=== PATIENT | male | born 1985 | race Caucasian/White ===

== ENCOUNTER 2016-12-10 12:48 | Emergency (ER) | payer OTHER ==
[~2016-12-10] VITALS: Ht 175.3 cm; Wt 64.0 kg
[~2016-12-10 12:48] MED LIST: ONDA4TAB7 SL; SUBUTEX PO
[2016-12-10 13:00] VITALS: TEMP 37; Ht 175.3 cm; Wt 64.0 kg
[2016-12-10] MEDS ORDERED: ONDANSETRON INJ 2 MG/ML 2 ML VIAL IV STA (13:40)
[2016-12-10] MEDS ORDERED: SODIUM CHLORIDE 0.9% 1000ML 1,000 ML IV STA (13:40)
[2016-12-10 13:52] LABS: BASO % 0.2 %; BASO ABS # 0.03 K/uL (0-0.2); COMPLETE YES; EOS % 0.3 %; HEMATOCRIT 41.2 % (42-52); IG% 0.2 %; LYMPH % 29.7 %; MEAN CELL VOLUME 96.3 fL (80-100); MEAN CORPUSCULAR HEMOGLOBIN 34.6 pg (25-34); MEAN CORPUSCULAR HGB CONC 35.9 g/dl (32-36); MEAN PLATELET VOLUME 10.4 fL (7.4-10.4); NEUT % 62.6 %; PLATELET COUNT 253 K/uL (130-400); RED BLOOD COUNT 4.28 M/uL (4.7-6.1); WHITE BLOOD COUNT 13.11 K/uL (4.8-10.8)
[2016-12-10] MEDS ORDERED: BUPR8SUB19 SL (13:52)
[2016-12-10 14:13] LABS: BUN/CREATININE RATIO 18.4 (10-20); CALCIUM 9.7 mg/dl (8.5-10.1); CREATININE 0.88 mg/dl (0.60-1.40); POTASSIUM 3.5 mmol/L (3.5-5.1)
--- NOTE | 2016-12-10 14:18 | DIAGNOSTIC IMAGING REPORT ---
ABDOMEN 2VIEW W/PA CHEST RTN CLINICAL HISTORY: nausea/ vomiting nausea. Pain. COMPARISON STUDY: 10/18/2014 FINDINGS: The soft tissues, psoas shadows, renal outlines and intestinal gas pattern appear normal. There is no evidence for bowel obstruction. There is no evidence for free intraperitoneal air. No abnormal abdominal calcifications are seen. A frontal view of the chest was performed and is unremarkable. IMPRESSION: Normal study. Electronically signed by: Mir Cho M.D. 12/10/2016 2:16 PM Dictated Date/Time: 12/10/2016 2:16 PM
[2016-12-10 14:24] LABS: THYROID STIMULATING HORMONE 1.5 uIu/ml (0.300-4.500)
[2016-12-10] MEDS ORDERED: ONDA4TAB10 SL (14:42)
--- NOTE | 2016-12-10 14:43 | EMERGENCY ROOM VISIT NOTE ---
History First contact with patient: 13:28 Chief Complaint: VOMITING Stated Complaint: NAUSEA,HOT/COLD SWEATS,DEHYDRATION,NO APPETITE Nursing Triage Summary: Pt reports nausea/vomiting since yesterday. Concerned for dehydration. Weak, decreased appetite. Yesterday had body aches. History of Present Illness The patient is a 31 year old male who presents to the Emergency Room with complaints of nausea and vomiting. The patient states that over the last month or 2 he has been having one to 2 episodes of vomiting per week. His latest episode started on Saturday when he just was not feeling very well he felt nauseated and felt hot and cold but did not vomit. On Saturday he had one episode of vomiting and then yesterday he was nauseated and had vomiting all day. The patient denies any abdominal pain or any change in bowel habits. The patient denies any urinary symptoms of frequency, urgency, dysuria or hematuria. The patient denies any heartburn. The patient states today he is feeling better. He only feels nauseated intermittently. He has not vomited today. He was able to drink fluids this morning and drink a bottle of ensure. The patient states prior to vomiting he feels hot and cold and feels tingly in his extremities. After he vomits he feels better for approximately 15-20 minutes. The patient currently does not have a family doctor. He has not taken any [id number] medications for his symptoms. Review of Systems 10 system review was performed and was negative unless stated otherwise history of present illness. Past Medical/Surgical History Medical Problems: (1) Anxiety and depression (2) Bipolar disorder Family History Depression Social History Smoking Status: Current Every Day Smoker Alcohol Use: occasionally Marital Status: single Housing Status: lives with significant other Occupation Status: unemployed Current/Historical Medications Scheduled Buprenorphine Hcl (Subutex), 1 TAB SL BID Allergies Coded Allergies: Gadolinium (Verified Allergy, Severe, airway swelling, 12/10/16) Propoxyphene (Verified Allergy, Severe, GI SYMPTOMS, 12/10/16) Naloxone (Verified Allergy, Intermediate, VOMITING, RASH, 12/10/16) Iodinated Diagnostic Agents (Unverified Allergy, Unknown, SWELLING RASH , 12/10/16) Oxycodone (Verified Adverse Reaction, Mild, upset stomach, 12/10/16) Physical Exam Vital Signs Date Time Temp Pulse Resp B/P Pulse Ox O2 Delivery O2 Flow Rate FiO2 12/10/16 13:00 37.0 84 18 134/78 98 Room Air Physical Exam GENERAL: 31-year-old white male appears in no acute distress. MENTAL Status: Alert and oriented 3. MOUTH: Mucosa is moist NECK: Supple, no lymphadenopathy noted. No carotid bruits noted. LUNGS: Clear auscultation without wheezes rales or rhonchi. CARDIAC: Regular rate and rhythm without murmur. Pulses is full and equal throughout. BACK: Mild right CVA tenderness noted. ABDOMEN: Positive bowel sounds all 4 quadrants. Soft, nontender to palpation without organomegaly or masses. EXTREMITIES: No cyanosis or edema noted. Medical Decision & Procedures ER Provider Diagnostic Interpretation: ABDOMEN 2VIEW W/PA CHEST RTN CLINICAL HISTORY: nausea/ vomiting nausea. Pain. COMPARISON STUDY: 10/18/2014 FINDINGS: The soft tissues, psoas shadows, renal outlines and intestinal gas pattern appear normal. There is no evidence for bowel obstruction. There is no evidence for free intraperitoneal air. No abnormal abdominal calcifications are seen. A frontal view of the chest was performed and is unremarkable. IMPRESSION: Normal study. Electronically signed by: Mir Cho M.D. 12/10/2016 2:16 PM Dictated Date/Time: 12/10/2016 2:16 PM Laboratory Results 12/10/16 13:35 Red Blood Count 4.28, Mean Corpuscular Volume 96.3, Mean Corpuscular Hemoglobin 34.6, Mean Corpuscular Hemoglobin Concent 35.9, Mean Platelet Volume 10.4, Neutrophils (%) (Auto) 62.6, Lymphocytes (%) (Auto) 29.7, Monocytes (%) (Auto) 7.0, Eosinophils (%) (Auto) 0.3, Basophils (%) (Auto) 0.2, Neutrophils # (Auto) 8.19, Lymphocytes # (Auto) 3.90, Monocytes # (Auto) 0.92, Eosinophils # (Auto) 0.04, Basophils # (Auto) 0.03 12/10/16 13:35 Test 12/10/16 13:35 White Blood Count 13.11 K/uL (4.8-10.8) Red Blood Count 4.28 M/uL (4.7-6.1) Hemoglobin 14.8 g/dL (14.0-18.0) Hematocrit 41.2 % (42-52) Mean Corpuscular Volume 96.3 fL (80-100) Mean Corpuscular Hemoglobin 34.6 pg (25-34) Mean Corpuscular Hemoglobin Concent 35.9 g/dl (32-36) Platelet Count 253 K/uL (130-400) Mean Platelet Volume 10.4 fL (7.4-10.4) Neutrophils (%) (Auto) 62.6 % Lymphocytes (%) (Auto) 29.7 % Monocytes (%) (Auto) 7.0 % Eosinophils (%) (Auto) 0.3 % Basophils (%) (Auto) 0.2 % Neutrophils # (Auto) 8.19 K/uL (1.4-6.5) Lymphocytes # (Auto) 3.90 K/uL (1.2-3.4) Monocytes # (Auto) 0.92 K/uL (0.11-0.59) Eosinophils # (Auto) 0.04 K/uL (0-0.5) Basophils # (Auto) 0.03 K/uL (0-0.2) RDW Standard Deviation 46.7 fL (36.4-46.3) RDW Coefficient of Variation 13.2 % (11.5-14.5) Immature Granulocyte % (Auto) 0.2 % Immature Granulocyte # (Auto) 0.03 K/uL (0.00-0.02) Anion Gap 12.0 mmol/L (3-11) Est Creatinine Clear Calc Drug Dose 111.1 ml/min Estimated GFR () 133.6 Estimated GFR (Non- 115.3 BUN/Creatinine Ratio 18.4 (10-20) Calcium Level 9.7 mg/dl (8.5-10.1) Total Bilirubin 0.5 mg/dl (0.2-1) Direct Bilirubin 0.1 mg/dl (0-0.2) Aspartate Amino Transf (AST/SGOT) 22 U/L (15-37) Alanine Aminotransferase (ALT/SGPT) 52 U/L (12-78) Alkaline Phosphatase 67 U/L (45-117) Total Protein 8.8 gm/dl (6.4-8.2) Albumin 4.6 gm/dl (3.4-5.0) Lipase 87 U/L (73-393) Thyroid Stimulating Hormone (TSH) 1.500 uIu/ml (0.300-4.500) Medications Administered Medications (Trade) Dose Ordered Sig/Maxx Route Start Time Stop Time Status Last Admin Dose Admin Ondansetron HCl 4 mg 4 mg NOW STAT IV 12/10/16 13:40 12/10/16 13:44 DC 12/10/16 13:59 4 MG Sodium Chloride (Nss 1000ml) 1,000 ml @ 999 mls/hr Q1H1M STAT IV 12/10/16 13:40 12/10/16 14:40 12/10/16 13:40 999 MLS/HR ED Course The patient was evaluated. IV access was obtained. The patient was given 1 L normal saline wide-open and Zofran 4 mg IV push. CBC and differential, renal profile, LFTs and lipase levels were ordered. TSH was ordered. Abdominal series x-ray was ordered and interpreted by the radiologist and myself as above without any acute findings. Labs are reviewed and were unremarkable. The patient was informed of all findings. The patient was discharged home in stable condition. Medical Decision Differential diagnosis include acute cholecystitis, acute gastritis, GERD, small bowel obstruction Impression Primary Impression: Acute gastritis Departure Information Dispostion Home / Self-Care Condition GOOD Prescriptions Ondasetron Odt (ZOFRAN ODT) 4 Mg Tab 4 MG SL Q6H for Nausea, #10 TAB Prov: Janina Cho PA-C 12/10/16 Referrals No Doctor, Assigned (PCP) Fabricio Purcell M.D. Forms HOME CARE DOCUMENTATION FORM, IMPORTANT VISIT INFORMATION Patient Instructions ED Nausea Vomiting, My [facility] Additional Instructions Recommend taking [id number]-gan-[id number] Prilosec 20 mg daily. Take Zofran as needed for nausea. Keep herself well-hydrated. Call , gastroenterology for follow-up appointment and further evaluation. He may need a referral from your PCP. Please check with your insurance company before making that appointment. If symptoms should worsen in the interim, return to ER.
[2016-12-10 14:53] VITALS: BP 124/90; PULSE 78; O2SAT 98
== END 2016-12-10 14:55 | disposition home or self-care (01) ==
LOC: C.EDB 12:49
DX: K29.00 Acute gastritis without bleeding (principal); F31.9 Bipolar disorder, unspecified; F41.9 Anxiety disorder, unspecified; F32.9 Major depressive disorder, single episode, unspecified; F17.200 Nicotine dependence, unspecified, uncomplicated; Z88.5 Allergy status to narcotic agent; Z88.8 Allergy status to other drugs, medicaments and biological substances; Z91.041 Radiographic dye allergy status; Z81.8 Family history of other mental and behavioral disorders

== ENCOUNTER 2016-12-31 16:42 | Emergency (ER) | payer OTHER ==
[~2016-12-31 16:42] MED LIST changes: +BUPR8SUB19 SL; +ONDA4TAB10 SL; -ONDA4TAB7 SL; -SUBUTEX PO
== END 2016-12-31 16:46 | disposition left against medical advice (07) ==
LOC: C.EDB 16:43
DX: S69.91XA Unspecified injury of right wrist, hand and finger(s), initial encounter (principal); X58.XXXA Exposure to other specified factors, initial encounter

== ENCOUNTER 2017-07-29 12:23 | Emergency (ER) | payer OTHER ==
[~2017-07-29] VITALS: Ht 172.7 cm; Wt 58.6 kg
[~2017-07-29 12:23] MED LIST changes: -ONDA4TAB10 SL; +VANCOMYCIN HCL 125 MG/2.5ML SOLN PO SCH
[2017-07-29 12:36] VITALS: TEMP 36.7; Ht 172.7 cm; Wt 58.6 kg
[2017-07-29] MEDS ORDERED: SODIUM CHLORIDE 0.9% 1000ML 1,000 ML IV STA ×2 (13:41→16:14)
[2017-07-29] MEDS ORDERED: MoRPHine SULFATE 4 MG/ML 1 ML CARP\\VIAL IV STA (13:41)
[2017-07-29] MEDS ORDERED: ONDANSETRON INJ 2 MG/ML 2 ML VIAL IV STA (13:41)
[2017-07-29 14:18] LABS: BASO % 0.1 %; BASO ABS # 0.03 K/uL (0-0.2); COMPLETE YES; EOS % 0.5 %; HEMATOCRIT 37.6 % (42-52); IG% 0.2 %; LYMPH % 6.6 %; LYMPH ABS # 1.41 K/uL (1.2-3.4); MEAN CELL VOLUME 95.4 fL (80-100); MEAN CORPUSCULAR HEMOGLOBIN 33.2 pg (25-34); MEAN CORPUSCULAR HGB CONC 34.8 g/dl (32-36); MEAN PLATELET VOLUME 10.3 fL (7.4-10.4); MONO % 8.9 %; NEUT % 83.7 %; PLATELET COUNT 222 K/uL (130-400); RED BLOOD COUNT 3.94 M/uL (4.7-6.1); WHITE BLOOD COUNT 21.37 K/uL (4.8-10.8)
[2017-07-29 14:33] LABS: ALT/SGPT 13 U/L (12-78); AST/SGOT 10 U/L (15-37); BLOOD UREA NITROGEN 11 mg/dl (7-18); BUN/CREATININE RATIO 12.8 (10-20); CALCIUM 8.9 mg/dl (8.5-10.1); CARBON DIOXIDE 26 mmol/L (21-32); CHLORIDE 102 mmol/L (98-107); CREATININE 0.83 mg/dl (0.60-1.40); GLUCOSE 106 mg/dl (70-99); POTASSIUM 3.7 mmol/L (3.5-5.1); SODIUM 136 mmol/L (136-145)
[2017-07-29 14:36] LABS: ALKALINE PHOSPHATASE 72 U/L (45-117)
[2017-07-29 14:51] LABS: URINE APPEARANCE CLEAR (CLEAR); URINE COLOR DK YELLOW; URINE EPITHELIAL CELL AUTO >30 /lpf (0-5); URINE NITRITE POS (NEG); URINE PH 5.5 (4.5-7.5); URINE SPECIFIC GRAVITY 1.035 (1.000-1.030); UROBILINOGEN NEG (NEG); ZZUR CULT IF INDIC CLEAN CATCH NO
--- NOTE | 2017-07-29 14:55 | DIAGNOSTIC IMAGING REPORT ---
CT SCAN OF THE ABDOMEN AND PELVIS WITHOUT IV CONTRAST CLINICAL HISTORY: Generalized abdominal pain. COMPARISON STUDY: Abdominal radiograph dated 12/10/2016. TECHNIQUE: CT scan of the abdomen and pelvis is performed from the lung bases to the proximal femora. Images are reviewed in the axial, sagittal, and coronal planes. IV contrast was not administered for this examination as per the referring clinician. Note that the examination is suboptimal without oral and IV contrast. A dose lowering technique was utilized adhering to the principles of ALARA. CT DOSE: 257.65 mGy.cm FINDINGS: Lung bases: The heart is normal in size and without pericardial effusion. The lung bases are clear. Liver: The unenhanced liver is normal in size, contour, and attenuation. There is no intrahepatic biliary ductal dilatation. Gallbladder: Unremarkable. Spleen: Normal in size and attenuation. Pancreas: The unenhanced pancreas is grossly unremarkable. Adrenal glands: Unremarkable. Kidneys: The unenhanced kidneys are normal in size and without hydronephrosis. There are no renal calculi identified. There is no evidence of contour deforming renal mass lesion. Abdominal vasculature: The abdominal aorta is normal in course and caliber. Bowel: There is no bowel obstruction. There is diffuse mucosal thickening and edema identified throughout the colon with associated pericolonic infiltration and trace fluid. The appearance is consistent with a nonspecific pancolitis. The cecum is located in the pelvis. The appendix is not identified. Peritoneum: There is trace free fluid in the abdomen and pelvis. No intraperitoneal free air is seen. Lymphadenopathy: None. Pelvic viscera: The bladder, prostate, and seminal vesicles are normal as visualized. Skeletal structures: No lytic or blastic lesions are seen. IMPRESSION: 1. Suboptimal examination without oral and IV contrast. 2. Findings are consistent with a nonspecific pancolitis, likely on an infectious or inflammatory basis in this age group. 3. Trace free fluid is seen in the abdomen and pelvis, likely on a reactive basis. Electronically signed by: Alireza Redding M.D. 07/29/2017 2:54 PM Dictated Date/Time: 07/29/2017 2:50 PM
[2017-07-29 14:57] LABS: MANUAL MICROSCOPIC REQUIRED? NO; REVIEW REQ? NO; URINE BILIRUBIN 2+ (NEG)
[2017-07-29] MEDS ORDERED: METRONIDAZOLE 500MG / 100ML NSS IV STA (16:14)
[2017-07-29] MEDS ORDERED: CEFTRIAXONE SOD INJ 1 GM ADDVIAL IV STA (16:14)
[2017-07-29] MEDS ORDERED: VANCOMYCIN HCL 125 MG/2.5ML SOLN PO STA (16:14)
--- NOTE | 2017-07-29 16:49 | Pharmacy Progress Note ---
ED Pharmacist Progress Note Date of Service: Jul 29, 2017. Rx phoned to [facility] ([phone]) for Vancomycin oral solution 125mg PO QID x 13 days, no refills, Dr Yeboah. Pt received 1st dose of PO Vancomycin in ED today. Will dispense a home pack of 3 doses of 125mg as [facility] will not have the Rx available until tomorrow evening as they need to order this medication.
[2017-07-29 18:02] VITALS: BP 111/56; PULSE 84; O2SAT 98
--- NOTE | 2017-07-29 20:44 | EMERGENCY ROOM VISIT NOTE ---
History Report prepared by Rivka: Maegan Acevedo Under the Supervision of: Dr. Toby Yeboah M.D. First contact with patient: 13:31 Chief Complaint: ABDOMINAL PAIN Stated Complaint: SEVERE STOMACH PAIN, MUCUS STOOLS, LOSS OF WT Nursing Triage Summary: Poor appetite x5 days, white mucousy diarrhea, painful BMs, diffuse abdominal pain 10/10. Internittent red blood in stool. Denies N/V. Denies urinary symptoms. History of Present Illness The patient is a 31 year old male who presents to the Emergency Room with complaints of worsening abdominal pain beginning 2 days ago. The patient describes the pain as severe, and rates it at a 5/10. The patient also reports having mucus and a little bit of blood in his stool. He also reports being nauseous. The patient states that a few years ago he was diagnosed with colitis , but has never been treated for it because it went away. His family reports that he has also had loss of appetite.He states that he has been on Subutex for a couple of years. Pt denies LOC, headache, fevers, chills, diaphoresis, visual changes, neck pain, chest pain, breathing difficulties, vomiting, back pain, numbness, weakness, lymphadenopathy, rash, or other complaints. Source of History: patient, family Onset: 2 days ago Position: abdomen Symptom Intensity: severe (rated at a 5/10) Timing: worsening Associated Symptoms: + nausea, No fevers Note: additional symptoms: mucus and a little bit of blood in stool, loss of appetite Review of Systems See HPI for pertinent positives and negatives. A total of ten systems were reviewed and were otherwise negative. Past Medical & Surgical Medical Problems: (1) Anxiety and depression (2) Bipolar disorder Family History Depression Social History Smoking Status: Current Every Day Smoker Alcohol Use: occasionally Marital Status: Housing Status: lives with significant other Occupation Status: unemployed Current/Historical Medications No Active Prescriptions or Reported Meds Allergies Coded Allergies: Gadolinium (Verified Allergy, Severe, airway swelling, 12/10/16) Propoxyphene (Verified Allergy, Severe, GI SYMPTOMS, 12/10/16) Naloxone (Verified Allergy, Intermediate, VOMITING, RASH, 07/29/17) Iodinated Diagnostic Agents (Unverified Allergy, Unknown, SWELLING RASH , 07/29/17) Oxycodone (Verified Adverse Reaction, Mild, upset stomach, 12/10/16) Physical Exam Vital Signs Date Time Temp Pulse Resp B/P (MAP) Pulse Ox O2 Delivery O2 Flow Rate FiO2 07/29/17 18:02 84 18 111/56 98 Room Air 07/29/17 15:26 80 18 116/70 97 Room Air 07/29/17 14:12 97 18 106/62 97 Room Air 07/29/17 13:59 97 07/29/17 12:36 36.7 109 18 123/87 97 Room Air Physical Exam GENERAL: Awake, alert, uncomfortable-appearing, in no distress HENT: Normocephalic, atraumatic. Oropharynx unremarkable. EYES: Normal conjunctiva. Sclera non-icteric. NECK: Supple. No nuchal rigidity. FROM. No JVD. RESPIRATORY: Clear to auscultation. CARDIAC: Regular rate, normal rhythm. Extremities warm and well perfused. Pulses equal. ABDOMEN: Soft, non-distended. Diffuse abdominal tenderness. No rebound or guarding. No masses. RECTAL: Deferred. MUSCULOSKELETAL: Chest examination reveals no tenderness. The back is symmetrical on inspection without obvious abnormality. Mild bilateral CVA tenderness. No joint edema. LOWER EXTREMITIES: Calves are equal size bilaterally and non-tender. No edema. No discoloration. NEURO: Normal sensorium. No sensory or motor deficits noted. SKIN: No rash or jaundice noted. Medical Decision & Procedures ER Provider Diagnostic Interpretation: Radiology results as stated below per my review and radiologist interpretation: CT SCAN OF THE ABDOMEN AND PELVIS WITHOUT IV CONTRAST CLINICAL HISTORY: Generalized abdominal pain. COMPARISON STUDY: Abdominal radiograph dated 12/10/2016. TECHNIQUE: CT scan of the abdomen and pelvis is performed from the lung bases to the proximal femora. Images are reviewed in the axial, sagittal, and coronal planes. IV contrast was not administered for this examination as per the referring clinician. Note that the examination is suboptimal without oral and IV contrast. A dose lowering technique was utilized adhering to the principles of ALARA. CT DOSE: 257.65 mGy.cm FINDINGS: Lung bases: The heart is normal in size and without pericardial effusion. The lung bases are clear. Liver: The unenhanced liver is normal in size, contour, and attenuation. There is no intrahepatic biliary ductal dilatation. Gallbladder: Unremarkable. Spleen: Normal in size and attenuation. Pancreas: The unenhanced pancreas is grossly unremarkable. Adrenal glands: Unremarkable. Kidneys: The unenhanced kidneys are normal in size and without hydronephrosis. There are no renal calculi identified. There is no evidence of contour deforming renal mass lesion. Abdominal vasculature: The abdominal aorta is normal in course and caliber. Bowel: There is no bowel obstruction. There is diffuse mucosal thickening and edema identified throughout the colon with associated pericolonic infiltration and trace fluid. The appearance is consistent with a nonspecific pancolitis. The cecum is located in the pelvis. The appendix is not identified. Peritoneum: There is trace free fluid in the abdomen and pelvis. No intraperitoneal free air is seen. Lymphadenopathy: None. Pelvic viscera: The bladder, prostate, and seminal vesicles are normal as visualized. Skeletal structures: No lytic or blastic lesions are seen. IMPRESSION: 1. Suboptimal examination without oral and IV contrast. 2. Findings are consistent with a nonspecific pancolitis, likely on an infectious or inflammatory basis in this age group. 3. Trace free fluid is seen in the abdomen and pelvis, likely on a reactive basis. Electronically signed by: Alireza Redding M.D. 07/29/2017 2:54 PM Dictated Date/Time: 07/29/2017 2:50 PM Laboratory Results 07/29/17 13:58 Red Blood Count 3.94, Mean Corpuscular Volume 95.4, Mean Corpuscular Hemoglobin 33.2, Mean Corpuscular Hemoglobin Concent 34.8, Mean Platelet Volume 10.3, Neutrophils (%) (Auto) 83.7, Lymphocytes (%) (Auto) 6.6, Monocytes (%) (Auto) 8.9, Eosinophils (%) (Auto) 0.5, Basophils (%) (Auto) 0.1, Neutrophils # (Auto) 17.87, Lymphocytes # (Auto) 1.41, Monocytes # (Auto) 1.91, Eosinophils # (Auto) 0.10, Basophils # (Auto) 0.03 07/29/17 13:58 Test 07/29/17 13:58 07/29/17 14:16 White Blood Count 21.37 K/uL (4.8-10.8) Red Blood Count 3.94 M/uL (4.7-6.1) Hemoglobin 13.1 g/dL (14.0-18.0) Hematocrit 37.6 % (42-52) Mean Corpuscular Volume 95.4 fL (80-100) Mean Corpuscular Hemoglobin 33.2 pg (25-34) Mean Corpuscular Hemoglobin Concent 34.8 g/dl (32-36) Platelet Count 222 K/uL (130-400) Mean Platelet Volume 10.3 fL (7.4-10.4) Neutrophils (%) (Auto) 83.7 % Lymphocytes (%) (Auto) 6.6 % Monocytes (%) (Auto) 8.9 % Eosinophils (%) (Auto) 0.5 % Basophils (%) (Auto) 0.1 % Neutrophils # (Auto) 17.87 K/uL (1.4-6.5) Lymphocytes # (Auto) 1.41 K/uL (1.2-3.4) Monocytes # (Auto) 1.91 K/uL (0.11-0.59) Eosinophils # (Auto) 0.10 K/uL (0-0.5) Basophils # (Auto) 0.03 K/uL (0-0.2) RDW Standard Deviation 44.3 fL (36.4-46.3) RDW Coefficient of Variation 12.7 % (11.5-14.5) Immature Granulocyte % (Auto) 0.2 % Immature Granulocyte # (Auto) 0.05 K/uL (0.00-0.02) Anion Gap 8.0 mmol/L (3-11) Est Creatinine Clear Calc Drug Dose 107.9 ml/min Estimated GFR () 136.8 Estimated GFR (Non- 118.1 BUN/Creatinine Ratio 12.8 (10-20) Calcium Level 8.9 mg/dl (8.5-10.1) Total Bilirubin 0.4 mg/dl (0.2-1) Direct Bilirubin < 0.1 mg/dl (0-0.2) Aspartate Amino Transf (AST/SGOT) 10 U/L (15-37) Alanine Aminotransferase (ALT/SGPT) 13 U/L (12-78) Alkaline Phosphatase 72 U/L (45-117) Total Protein 7.3 gm/dl (6.4-8.2) Albumin 3.4 gm/dl (3.4-5.0) Lipase 63 U/L (73-393) Urine Color DK YELLOW Urine Appearance CLEAR (CLEAR) Urine pH 5.5 (4.5-7.5) Urine Specific [place] 1.035 (1.000-1.030) Urine Protein TRACE (NEG) Urine Glucose (UA) NEG (NEG) Urine Ketones 3+ (NEG) Urine Occult Blood 2+ (NEG) Urine Nitrite POS (NEG) Urine Bilirubin 2+ (NEG) Urine Urobilinogen NEG (NEG) Urine Leukocyte Esterase TRACE (NEG) Urine WBC (Auto) 1-5 /hpf (0-5) Urine RBC (Auto) >30 /hpf (0-4) Urine Hyaline Casts (Auto) 10-30 /lpf (0-5) Urine Epithelial Cells (Auto) >30 /lpf (0-5) Urine Bacteria (Auto) NEG (NEG) Date/Time Source Procedure Growth Status 07/29/17 14:16 Stool C.difficile Toxin B Gene (PCR) - Final Positive for C. difficile toxin B gene Complete Laboratory results reviewed by me Medications Administered Medications (Trade) Dose Ordered Sig/Maxx Route Start Time Stop Time Status Last Admin Dose Admin Sodium Chloride 1,000 ml @ 999 mls/hr Q1H1M STAT IV 07/29/17 13:41 07/29/17 14:41 DC 07/29/17 14:05 999 MLS/HR Ondansetron HCl (Zofran Inj) 4 mg NOW STAT IV 07/29/17 13:41 07/29/17 13:43 DC 07/29/17 14:11 4 MG Morphine Sulfate (MoRPHine SULFATE INJ) 4 mg NOW STAT IV 07/29/17 13:41 07/29/17 13:43 DC 07/29/17 14:12 4 MG Sodium Chloride 1,000 ml @ 200 mls/hr Q5H STAT IV 07/29/17 16:14 07/29/17 19:11 DC 07/29/17 16:25 200 MLS/HR Vancomycin HCl (Vancomycin Oral Soln) 125 mg NOW STAT PO 07/29/17 16:14 07/29/17 16:17 DC 07/29/17 16:33 125 MG Metronidazole (Flagyl / Nss) 500 mg NOW STAT IV 07/29/17 16:14 07/29/17 16:17 DC 07/29/17 16:26 500 MG Ceftriaxone Sodium (Rocephin Inj) 1 gm NOW STAT IV 07/29/17 16:14 07/29/17 16:17 DC 07/29/17 16:25 1 GM ED Course 1340: The patient was evaluated in room B9. A complete history and physical exam was performed. 1341: Ordered Morphine Sulfate 4 mg IV, Zofran Inj 4 mg IV, Sodium Chloride 1, 000 ml @ 999 mls/hr IV. 1545: I updated the patient on his results. 1600: Discussed the patient's case with DEVANTE Huizar. The patient will be evaluated for further treatment and disposition. 1602: The patient states that he feels better and that he would prefer to go home. 1614: Ordered Rocephin Inj 1 gm IV, Metronidazole 500 mg IV, Vancomycin HCl 125 mg PO, Sodium Chloride 1,000 ml @ 200 mls/hr IV. 1730: I discussed the need for admission with the patient. He stated understanding. The patient left against medical advice. Medical Decision Triage Nursing notes reviewed. The patient's presentation and history were concerning for abdominal pain. Etiologies such as infectious diarrhea, inflammatory bowel disease, appendicitis, diverticulitis, obstruction, renal colic, PUD, biliary pathology , pancreatitis, mesenteric ischemia, aortic pathology, infections, genitourinary , UTI, perforated viscus, as well as others were entertained. The patient was evaluated. He was uncomfortable. He was given Zofran, normal saline, and morphine. He felt better with this. Blood work is obtained and he had a significant leukocytosis. The patient was also found to have a urinalysis concerning for UTI. The patient does note some urinary symptoms. He denies any recent antibiotic use or sick contacts. Stool culture was sent and was found to be positive for C. difficile. CT imaging was concerning for a pancolitis. The patient was informed. I did consult with gastroenterology. Recommendations were for admission. The patient declined admission as he has pending appointments tomorrow. He was aware of the risks. He did willingly stay for the initiation of treatment. I did give him oral vancomycin, IV Flagyl , and a dose of IV Rocephin. The patient will be seen tomorrow at the [facility] gastroenterology clinic at 2:30 PM. He will start oral vancomycin. He was given the first 3 doses by pharmacy here as his pharmacy will take some time to order in the medication. He should have this tomorrow afternoon from his pharmacy. The patient will contact the Emergency Room tomorrow for urine culture result. I did not do additional antibiotics regarding the urine because of this C. difficile issue and colitis. His urinary treatment will be based upon his culture results. If the patient worsens in any way he will be back. He is fully aware of the risks and benefits. I gave my usual and customary discussion regarding this issue. The patient has demonstrated no significant defect in the decision-making capacity to make choices. The encounter had a good level of communication with language the patient can easily understand. I feel trust was present and conveyed that our action/intentions were the best interest of the patient. The patient was given all relevant information and reiterated the explained risks and benefits. The patient explained the reasoning for refusing treatment clearly. The patient possesses and expresses a set of values and goals, the ability to communicate and understand, and an ability to reason and deliberate. Despite acting emphatically, attentively and with the utmost patient's the patient declined further treatment. I offered options, negotiated, and explored every reasonable choice. I must respect the patient's autonomy and that they feel that their choices are best for them despite the associated risks of leaving AGAINST MEDICAL ADVICE. Medication Reconcilliation Current Medication List: was personally reviewed by me Blood Pressure Screening Patient's blood pressure: Normal blood pressure Consults Time Called: 1544 Consulting Physician: Amalia [employer] Machine Supervisor Returned Call: 1600 Discussed the patient's case. The patient will be evaluated for further treatment and disposition. Impression Primary Impression: C. difficile colitis Additional Impressions: Generalized abdominal pain UTI (urinary tract infection) Scribe Attestation The scribe's documentation has been prepared under my direction and personally reviewed by me in its entirety. I confirm that the note above accurately reflects all work, treatment, procedures, and medical decision making performed by me. Departure Information Dispostion Against Medical Advice Prescriptions No Active Prescriptions or Reported Meds Referrals Danis Mcbride D.O. (PCP) Forms HOME CARE DOCUMENTATION FORM, IMPORTANT VISIT INFORMATION Patient Instructions My [facility] Additional Instructions CT imaging revealed a diffuse colitis, inflammation of her colon. Stool testing revealed a C. difficile infection. Urine test is also concerning for infection. Vancomycin 125 mg 4 times a day for 2 weeks. This prescription was sent to the [facility] pharmacy and should be available tomorrow afternoon. Tylenol: Take 1000 mg every 6 hours as needed for pain. Do not take more than 3000 mg in a 24 hour period. And/or Ibuprofen(Motrin, Advil) may be used for fever or pain. Use 600mg every six hours as needed. Take with food. Avoid using more than 2400mg in a 24 hour period. Do not use 2400mg per day for more than three consecutive days without physician direction. Prolonged inappropriate use can lead to stomach upset or ulcers. Follow-up with [facility] gastroenterology, Luis Lambert NP. Tomorrow at 2: 30 PM at [facility]. Call back to the emergency department tomorrow at 4 PM for urine culture up-to- date. Additional antibiotic may be necessary based upon the urine culture results. Follow-up with your primary physician this week. You are leaving against the physician's medical advice. Your treatment is not complete. Your health could be at significant risk by your actions of leaving before the treatment was completed. This could result in worsening of your condition, need for further treatment, hospitalization, surgery, or even . You may return at any time, for any reason, but you are encouraged to return immediately if your symptoms worsen or if you change your mind. Problem Qualifiers
--- NOTE | 2017-07-30 18:42 | Pharmacy Progress Note ---
ED Pharmacist Culture FollowUp Date of Service: Jul 30, 2017. Patient was discharged from ED on 07/29 with diagnosis of c diff colitis. He was given Rx for PO vancomycin x 14 days. He also had UTI symptoms and UA suggestive of UTI. Dr Yeboah was waiting on the urine C&S results to start this patient on abx therapy, preferably for the shortest duration possible and possibly use nitrofurantoin if possible given the dx of c diff colitis. At this time, the results of urine cx not yet available, only pin-point growth noted. Final ID pending. Please review cx results with ED provider and obtain Rx for abx therapy based upon results when available. The patient is awaiting a call from the ED with this information.
--- NOTE | 2017-07-31 13:17 | Pharmacy Progress Note ---
ED Pharmacist Culture FollowUp Date of Service: Jul 31, 2017. Urine culture resulted indicative of normal monica. Attempted to call patient to assess if symptoms still present and left voicemails to call back. If patient's urinary symptoms improving, then no further antibiotics needed given current C. Diff infection and only normal monica growth in urine.
== END 2017-07-29 18:21 | disposition home or self-care (01) ==
LOC: C.EDB 12:25
DX: A04.72 Enterocolitis due to Clostridium difficile, not specified as recurrent (principal); N39.0 Urinary tract infection, site not specified; F41.8 Other specified anxiety disorders; F31.9 Bipolar disorder, unspecified; Z81.8 Family history of other mental and behavioral disorders; F17.210 Nicotine dependence, cigarettes, uncomplicated

== ENCOUNTER 2017-09-23 18:03 | Emergency (ER) | payer OTHER ==
[~2017-09-23] VITALS: Ht 172.7 cm; Wt 61.6 kg
[2017-09-23 18:10] VITALS: TEMP 36.7; Ht 172.7 cm; Wt 61.6 kg
[2017-09-23] MEDS ORDERED: ACETAMINOPHEN IV 100 ML IV STA (18:46)
[2017-09-23] MEDS ORDERED: SODIUM CHLORIDE 0.9% 1000ML 2,000 ML IV STA (18:46)
[2017-09-23] MEDS ORDERED: ONDANSETRON INJ 2 MG/ML 2 ML VIAL IV STA (18:46)
[2017-09-23 19:31] LABS: BASO % 0.3 %; BASO ABS # 0.02 K/uL (0-0.2); EOS % 5.7 %; EOS ABS # 0.45 K/uL (0-0.5); HEMATOCRIT 41.8 % (42-52); HEMOGLOBIN 14.1 g/dL (14.0-18.0); IG# 0.01 K/uL (0.00-0.02); LYMPH % 44.9 %; LYMPH ABS # 3.56 K/uL (1.2-3.4); MEAN CELL VOLUME 96.3 fL (80-100); MEAN CORPUSCULAR HEMOGLOBIN 32.5 pg (25-34); MEAN CORPUSCULAR HGB CONC 33.7 g/dl (32-36); MEAN PLATELET VOLUME 9.9 fL (7.4-10.4); MONO % 6.1 %; MONO ABS # 0.48 K/uL (0.11-0.59); NEUT % 42.9 %; PLATELET COUNT 246 K/uL (130-400); RED CELL DISTRIBUTION WIDTH CV 12.8 % (11.5-14.5); WHITE BLOOD COUNT 7.92 K/uL (4.8-10.8)
[2017-09-23 19:50] LABS: ALBUMIN 3.9 gm/dl (3.4-5.0); ALT/SGPT 18 U/L (12-78); BLOOD UREA NITROGEN 11 mg/dl (7-18); CALCIUM 9.5 mg/dl (8.5-10.1); CARBON DIOXIDE 28 mmol/L (21-32); CREATININE 0.64 mg/dl (0.60-1.40); GLUCOSE 85 mg/dl (70-99); LIPASE 113 U/L (73-393); POTASSIUM 3.6 mmol/L (3.5-5.1); SODIUM 139 mmol/L (136-145)
--- NOTE | 2017-09-23 19:51 | DIAGNOSTIC IMAGING REPORT ---
CT SCAN OF THE ABDOMEN AND PELVIS WITHOUT CONTRAST CLINICAL HISTORY: generalized abd pain COMPARISON STUDY: 07/29/2017 TECHNIQUE: CT scan of the abdomen and pelvis was performed from the lung bases to the proximal femurs. Images are reviewed in the axial, sagittal, and coronal planes. IV contrast was not administered for this examination. A dose lowering technique was utilized adhering to the principles of ALARA. CT DOSE: 257.59 mGy.cm FINDINGS: Lower chest: The heart is normal in size and configuration, without pericardial effusion. The lung bases and pleural spaces are clear. Liver: The unenhanced liver is normal in size, contour, and attenuation. There is no intrahepatic biliary ductal dilatation. Gallbladder: Unremarkable. Spleen: Normal in size and attenuation. Pancreas: Unremarkable. Adrenal glands: Unremarkable. Kidneys: The unenhanced kidneys are normal in size without hydronephrosis. There is no contour deforming renal mass lesion. No renal calculi are identified. Bowel: Evaluation the bowel is limited given the lack of orally or intravenously administered contrast. There are no transition zones indicate bowel obstruction. There is moderate fecal retention. There is been apparent resolution of the previously identified left colonic wall thickening. Peritoneum: There is no intraperitoneal free air or abdominal ascites. Vasculature: The abdominal aorta is normal in course and caliber. Adenopathy: None. Pelvic viscera: The bladder, and pelvic viscera are unremarkable. Skeletal structures: No destructive osseous lesions are seen. IMPRESSION: 1. Examination limited by the lack of intravenous and oral contrast 2. No evidence of bowel obstruction. No evidence of free air 3. Fecal retention. Correlate with symptoms of constipation 4. The previous identified bowel wall thickening has resolved Electronically signed by: Trevor Gaxiola M.D. 09/23/2017 7:50 PM Dictated Date/Time: 09/23/2017 7:47 PM
[2017-09-23 19:53] LABS: ALKALINE PHOSPHATASE 61 U/L (45-117); AST/SGOT 14 U/L (15-37); TOTAL PROTEIN 7.9 gm/dl (6.4-8.2)
[2017-09-23 20:04] LABS: INFLUENZA B ANTIGEN Neg for Influ B (NEG)
[2017-09-23] MEDS ORDERED: BUPIVACAINE 0.5 % 5 MG/1 ML MPF 30ML VIAL INFIL ONE (21:00)
[2017-09-23] MEDS ORDERED: ONDA4TAB10 SL (21:23)
--- NOTE | 2017-09-23 21:25 | EMERGENCY ROOM VISIT NOTE ---
History Report prepared by Rivka: Hayley Ardon Under the Supervision of: Dr. Derrick Yun M.D. First contact with patient: 18:39 Chief Complaint: DIZZY Stated Complaint: CALLED SPECIALIST SAID TO COME RIGHT AWAY Nursing Triage Summary: Patient had C-diff last month, patient started to have white mucous BMs. Instructed by PCP to attempt to give stool sample. Today while in the bathroom he vomitted and now feels dizzy and light headed. History of Present Illness The patient is a 31 year old male who presents to the Emergency Room with complaints of persistent abdominal pain starting earlier today. The patient was straining to have a bowel movement today when he started having abdominal pain. He then vomited 1 time. The vomit was not bloody or black. Since then, he has been feeling dizzy and lightheaded. He contacted his doctor who referred him to the ED. He is currently feeling nauseous. His last bowel movement was yesterday. He reports seeing some blood in his stool. He denies any fever, chills, or burning with urination. He has been coughing up black sputum. He does smoke. The patient has had this abdominal pain intermittently for the past 2 months. He has also been having white mucousy stools over the past 2 months. He was diagnosed with C diff last month and was treated with vancomycin. The abdominal pain resolved after the treatment, but he continued to have white mucous in his stools. He denies any other antibiotic use recently. He has still been having white mucousy stools. He has been scheduled for a colonoscopy. He denies any family history of GI problems. He has a history of colitis 4-5 years ago. He has chronic back pain which he does not take any medications for. He admits to occasional marijuana use. He denies any recent camping. Source of History: patient, spouse/significant other Onset: earlier today Position: abdomen Quality: other (pain) Timing: other (persistent) Associated Symptoms: + nausea, + vomiting, + hematochezia, No fevers, No chills, No urinary symptoms Review of Systems See HPI for pertinent positives and negatives. A total of ten systems were reviewed and were otherwise negative. Past Medical & Surgical Medical Problems: (1) Anxiety and depression (2) Bipolar disorder Family History Depression Social History Smoking Status: Current Every Day Smoker Alcohol Use: occasionally Marital Status: Housing Status: lives with significant other Occupation Status: unemployed Current/Historical Medications Scheduled Ondasetron Odt (Zofran Odt), 4 MG SL Q6H Allergies Coded Allergies: Gadolinium (Verified Allergy, Severe, airway swelling, 12/10/16) Propoxyphene (Verified Allergy, Severe, GI SYMPTOMS, 12/10/16) Naloxone (Verified Allergy, Intermediate, VOMITING, RASH, 07/29/17) Iodinated Diagnostic Agents (Unverified Allergy, Unknown, SWELLING RASH , 07/29/17) Oxycodone (Verified Adverse Reaction, Mild, upset stomach, 12/10/16) Physical Exam Vital Signs Date Time Temp Pulse Resp B/P (MAP) Pulse Ox O2 Delivery O2 Flow Rate FiO2 09/23/17 21:41 72 15 122/80 99 09/23/17 20:00 77 16 122/85 96 Room Air 09/23/17 18:10 36.7 85 16 122/82 98 Room Air Physical Exam GENERAL: Awake, alert, relatively well-appearing, in no distress HENT: Normocephalic, atraumatic. Dry cracked mucous membranes. Poor dentition, no gingival edema or fluctuance. EYES: Normal conjunctiva. Sclera non-icteric. NECK: Supple. No nuchal rigidity. FROM. No JVD. RESPIRATORY: Clear to auscultation. CARDIAC: Regular rate, normal rhythm. Extremities warm and well perfused. Pulses equal. ABDOMEN: Soft, non-distended. Generalized abdominal tenderness with even light touch to skin. No rashes. No rebound or guarding. No masses. RECTAL: Deferred. MUSCULOSKELETAL: Chest examination reveals no tenderness. The back is symmetrical on inspection without obvious abnormality. There is no CVA tenderness to palpation. No joint edema. LOWER EXTREMITIES: Calves are equal size bilaterally and non-tender. No edema. No discoloration. NEURO: Normal sensorium. No sensory or motor deficits noted. SKIN: No rash or jaundice noted. Medical Decision & Procedures ER Provider Diagnostic Interpretation: Radiology results as stated below per my review and radiologist interpretation: CT SCAN OF THE ABDOMEN AND PELVIS WITHOUT CONTRAST CLINICAL HISTORY: generalized abd pain COMPARISON STUDY: 07/29/2017 TECHNIQUE: CT scan of the abdomen and pelvis was performed from the lung bases to the proximal femurs. Images are reviewed in the axial, sagittal, and coronal planes. IV contrast was not administered for this examination. A dose lowering technique was utilized adhering to the principles of ALARA. CT DOSE: 257.59 mGy.cm FINDINGS: Lower chest: The heart is normal in size and configuration, without pericardial effusion. The lung bases and pleural spaces are clear. Liver: The unenhanced liver is normal in size, contour, and attenuation. There is no intrahepatic biliary ductal dilatation. Gallbladder: Unremarkable. Spleen: Normal in size and attenuation. Pancreas: Unremarkable. Adrenal glands: Unremarkable. Kidneys: The unenhanced kidneys are normal in size without hydronephrosis. There is no contour deforming renal mass lesion. No renal calculi are identified. Bowel: Evaluation the bowel is limited given the lack of orally or intravenously administered contrast. There are no transition zones indicate bowel obstruction. There is moderate fecal retention. There is been apparent resolution of the previously identified left colonic wall thickening. Peritoneum: There is no intraperitoneal free air or abdominal ascites. Vasculature: The abdominal aorta is normal in course and caliber. Adenopathy: None. Pelvic viscera: The bladder, and pelvic viscera are unremarkable. Skeletal structures: No destructive osseous lesions are seen. IMPRESSION: 1. Examination limited by the lack of intravenous and oral contrast 2. No evidence of bowel obstruction. No evidence of free air 3. Fecal retention. Correlate with symptoms of constipation 4. The previous identified bowel wall thickening has resolved Electronically signed by: Trevor Gaxiola M.D. 09/23/2017 7:50 PM Dictated Date/Time: 09/23/2017 7:47 PM Laboratory Results 09/23/17 19:10 Red Blood Count 4.34, Mean Corpuscular Volume 96.3, Mean Corpuscular Hemoglobin 32.5, Mean Corpuscular Hemoglobin Concent 33.7, Mean Platelet Volume 9.9, Neutrophils (%) (Auto) 42.9, Lymphocytes (%) (Auto) 44.9, Monocytes (%) (Auto) 6.1, Eosinophils (%) (Auto) 5.7, Basophils (%) (Auto) 0.3, Neutrophils # (Auto) 3.40, Lymphocytes # (Auto) 3.56, Monocytes # (Auto) 0.48, Eosinophils # (Auto) 0.45, Basophils # (Auto) 0.02 09/23/17 19:10 Test 09/23/17 19:10 09/23/17 19:25 09/23/17 20:50 White Blood Count 7.92 K/uL (4.8-10.8) Red Blood Count 4.34 M/uL (4.7-6.1) Hemoglobin 14.1 g/dL (14.0-18.0) Hematocrit 41.8 % (42-52) Mean Corpuscular Volume 96.3 fL (80-100) Mean Corpuscular Hemoglobin 32.5 pg (25-34) Mean Corpuscular Hemoglobin Concent 33.7 g/dl (32-36) Platelet Count 246 K/uL (130-400) Mean Platelet Volume 9.9 fL (7.4-10.4) Neutrophils (%) (Auto) 42.9 % Lymphocytes (%) (Auto) 44.9 % Monocytes (%) (Auto) 6.1 % Eosinophils (%) (Auto) 5.7 % Basophils (%) (Auto) 0.3 % Neutrophils # (Auto) 3.40 K/uL (1.4-6.5) Lymphocytes # (Auto) 3.56 K/uL (1.2-3.4) Monocytes # (Auto) 0.48 K/uL (0.11-0.59) Eosinophils # (Auto) 0.45 K/uL (0-0.5) Basophils # (Auto) 0.02 K/uL (0-0.2) RDW Standard Deviation 45.0 fL (36.4-46.3) RDW Coefficient of Variation 12.8 % (11.5-14.5) Immature Granulocyte % (Auto) 0.1 % Immature Granulocyte # (Auto) 0.01 K/uL (0.00-0.02) Erythrocyte Sedimentation Rate 13 mm/hr (0-14) Anion Gap 7.0 mmol/L (3-11) Est Creatinine Clear Calc Drug Dose 147.0 ml/min Estimated GFR () > 150.0 Estimated GFR (Non- 131.4 BUN/Creatinine Ratio 16.7 (10-20) Lactic Acid Level 0.9 mmol/L (0.4-2.0) Calcium Level 9.5 mg/dl (8.5-10.1) Total Bilirubin 0.5 mg/dl (0.2-1) Direct Bilirubin < 0.1 mg/dl (0-0.2) Aspartate Amino Transf (AST/SGOT) 14 U/L (15-37) Alanine Aminotransferase (ALT/SGPT) 18 U/L (12-78) Alkaline Phosphatase 61 U/L (45-117) C-Reactive Protein < 0.29 mg/dl (0-0.29) Total Protein 7.9 gm/dl (6.4-8.2) Albumin 3.9 gm/dl (3.4-5.0) Lipase 113 U/L (73-393) Influenza Type A Antigen Neg for Influ A (NEG) Influenza Type B Antigen Neg for Influ B (NEG) Urine Color YELLOW Urine Appearance CLOUDY (CLEAR) Urine pH 8.0 (4.5-7.5) Urine Specific [place] 1.011 (1.000-1.030) Urine Protein NEG (NEG) Urine Glucose (UA) NEG (NEG) Urine Ketones NEG (NEG) Urine Occult Blood NEG (NEG) Urine Nitrite NEG (NEG) Urine Bilirubin NEG (NEG) Urine Urobilinogen NEG (NEG) Urine Leukocyte Esterase TRACE (NEG) Urine WBC (Auto) 1-5 /hpf (0-5) Urine RBC (Auto) 0-4 /hpf (0-4) Urine Hyaline Casts (Auto) 0 /lpf (0-5) Urine Epithelial Cells (Auto) 0-5 /lpf (0-5) Urine Bacteria (Auto) NEG (NEG) Laboratory results reviewed by me Medications Administered Medications (Trade) Dose Ordered Sig/Maxx Route Start Time Stop Time Status Last Admin Dose Admin Ondansetron HCl (Zofran Inj) 4 mg NOW STAT IV 09/23/17 18:46 09/23/17 18:58 DC 09/23/17 19:48 4 MG Acetaminophen 100 ml @ 400 mls/hr NOW STAT IV 09/23/17 18:46 09/23/17 19:00 DC 09/23/17 19:49 400 MLS/HR Sodium Chloride 2,000 ml @ 999 mls/hr Q2H1M STAT IV 09/23/17 18:46 09/23/17 20:46 DC 09/23/17 19:51 999 MLS/HR ED Course 1844: The patient was evaluated in room C9. A complete history and physical exam was performed. 2036: I reevaluated the patient. I discussed the test results with him. 2125: I went to perform a dental block, but the patient declined. I discussed results and discharge instructions: He verbalized understanding and agreement. The patient is ready for discharge. Medical Decision I reviewed the patient's past medical history, medications, and the nursing notes as described above. Differential diagnosis: colitis, C diff vs infection vs inflammatory, obstruction, diverticulitis, gastroenteritis, viral syndrome. The patient is a 31-year-old gentleman with a past medical history of C. difficile colitis in July status post complete given of treatment with residual intermittent abdominal pain, mucousy diarrhea, and vomiting since emergency Department with these symptoms per history of present illness. On arrival, the patient is no distress, afebrile stable vital signs. On exam the patient has generalized abdominal tenderness to palpation with even light touch of the skin. Rectal exam demonstrates brown stool that is guaiac negative. Labs unremarkable including WBC, lactate, ESR, CRP within normal limits. Stool studies ordered however the patient unable to have a bowel movement here in the emergency department. CT abdomen and pelvis also unremarkable albeit limited by lack of contrast secondary to the patient's allergy to contrast. CT does demonstrate mild to moderate fecal load however given the patient's reported diarrhea will defer treatment of constipation. Of note patient reports having dental extraction last week and reports that he has been having dental pain, predominantly in his right upper posterior molar site. Exam no edema or fluctuance to suggest abscess. I did offer the patient a dental block which he initially agreed to however thinking it was going to be an IV dose of medicine but then declined when he understood that this would be an injection in his gums. Overall, given the reassuring workup including labs and CT scan the patient is unlikely to have an emergent process at this time. Patient will f/u with his GI specialist, pcp, and dentist. Findings and plan for follow-up reviewed with patient. Patient agreeable and d/c'd per discharge instructions. Of note, the patient was counseled on smoking cessation. Medication Reconcilliation Current Medication List: was personally reviewed by me Blood Pressure Screening Patient's blood pressure: Normal blood pressure Blood pressure disposition: Did not require urgent referral Impression Primary Impression: Generalized abdominal pain Scribe Attestation The scribe's documentation has been prepared under my direction and personally reviewed by me in its entirety. I confirm that the note above accurately reflects all work, treatment, procedures, and medical decision making performed by me. Departure Information Dispostion Home / Self-Care Prescriptions Ondasetron Odt (ZOFRAN ODT) 4 Mg Tab 4 MG SL Q6H for Nausea, #10 TAB Prov: Derrick Yun M.D. 09/23/17 Referrals Danis Mcbride D.O. (PCP) Patient Instructions ED Abdominal Pain Unkn Cause Male, My [facility] Additional Instructions Please follow up with your primary care physician and GI specialist in the next 1-3 days for re-evaluation. You should also contact your dentist if you are having continued pain from your tooth extraction. The cause of your symptoms is unclear at this time but may be due to eating fatty foods, which can be harder to digest after your recent C-diff colitis. Otherwise, your exam, lab results. and CT scan did not show signs of an emergent condition at this time. Zofran as needed for nausea. Ensure hydration. Return to the emergency department for worsening symptoms as described in the accompanying instructions.
[2017-09-23 21:41] VITALS: BP 122/80; PULSE 72; O2SAT 99
== END 2017-09-23 21:42 | disposition home or self-care (01) ==
LOC: C.EDB 18:04 → C.EDC 21:42
DX: R10.84 Generalized abdominal pain (principal); R42 Dizziness and giddiness; F17.200 Nicotine dependence, unspecified, uncomplicated; Z81.8 Family history of other mental and behavioral disorders

== ENCOUNTER 2018-01-06 01:47 | Emergency (ER) | payer OTHER ==
[~2018-01-06] VITALS: Ht 172.7 cm; Wt 59.7 kg
[~2018-01-06 01:47] MED LIST changes: -BUPR8SUB19 SL; +ONDA4TAB10 SL; -VANCOMYCIN HCL 125 MG/2.5ML SOLN PO SCH
[2018-01-06 01:54] VITALS: TEMP 36.8; Ht 172.7 cm; Wt 59.7 kg
[2018-01-06] MEDS ORDERED: DOXYCYCLINE HYCLATE 100 MG CAP PO STA (02:12)
[2018-01-06] MEDS ORDERED: DOXY-300 PO (02:19)
--- NOTE | 2018-01-06 02:21 | EMERGENCY ROOM VISIT NOTE ---
History Report prepared by Rivka: Ron Oliveira Under the Supervision of: Dr. Milka Fierro M.D. First contact with patient: 02:01 Chief Complaint: OTHER COMPLAINT Stated Complaint: CYST/ABSCESS/SORES ON HEAD AND FACE History of Present Illness The patient is a 32 year old male who presents to the Emergency Room with complaints of persistent sores on his head and face for several weeks. He reports sores all over his head and face. He states that they do not drain unless he squeezes them and they secrete green pus. He notes his facial hairs fall out. He denies any history of acne, though admits to dry skin. He has not seen his PCP for this issue. He has not seen a senior control systems engineer. He is a current smoker. Source of History: patient Onset: several weeks Position: head (and face) Quality: other (sores) Timing: other (persistent) Review of Systems See HPI for pertinent positives & negatives. Limited systems reviewed and were otherwise negative. Past Medical & Surgical Medical Problems: (1) Anxiety and depression (2) Bipolar disorder Family History Depression Social History Smoking Status: Current Every Day Smoker Alcohol Use: occasionally Marital Status: Housing Status: lives with significant other Occupation Status: unemployed Current/Historical Medications Scheduled Doxycycline (Monohydrate) (Doxycycline), 1 TAB PO BID Allergies Coded Allergies: Gadolinium (Verified Allergy, Severe, airway swelling, 01/06/18) Propoxyphene (Verified Allergy, Severe, GI SYMPTOMS, 01/06/18) Naloxone (Verified Allergy, Intermediate, VOMITING, RASH, 01/06/18) Iodinated Diagnostic Agents (Unverified Allergy, Unknown, SWELLING RASH , 01/06/18) Oxycodone (Verified Adverse Reaction, Mild, upset stomach, 01/06/18) Physical Exam Vital Signs Date Time Temp Pulse Resp B/P (MAP) Pulse Ox O2 Delivery O2 Flow Rate FiO2 01/06/18 02:22 95 16 133/86 98 Room Air 01/06/18 01:54 36.8 89 18 134/92 100 Room Air Physical Exam Vital signs reviewed. General: Well-appearing, in no significant distress. HEENT: No scleral icterus, PERRLA, neck supple. Atraumatic. Multiple healing scabs in areas of hair loss to the ordoñez and scalp, no clear abscess or significant swelling appreciated. Musculoskeletal: Awake, alert, and oriented. Neurologic: Patient awake alert and oriented x 3, full strength in all 4 extremities. Cranial nerves 2 through 12 grossly intact. Skin: Warm, dry, no rash Medical Decision & Procedures Medications Administered Medications (Trade) Dose Ordered Sig/Maxx Route Start Time Stop Time Status Last Admin Dose Admin Doxycycline Hyclate (Vibramycin Cap) 100 mg NOW STAT PO 01/06/18 02:12 01/06/18 02:14 DC 01/06/18 02:21 100 MG ED Course 0211: Past medical records reviewed. The patient was evaluated in room B10. A complete history and physical examination was performed. I discussed the results and treatment plan with the patient. I answered all pertaining questions that he had. He expressed understanding and verbalized agreement. The patient will be discharged home. 0212: Ordered Doxycycline Hyclate 100 mg PO Medical Decision Differential diagnosis: Etiologies such as cellulitis, abscess, MRSA infection, necrotizing fasciitis, dermatitis, drug eruption, as well as others were entertained.. This patient was evaluated and appeared to be in no significant distress. Patient's physical exam reveals several areas of recently drained abscess/ cellulitis. Patient's most afflicted areas are near hair follicles along the chin and top of the head. I do suspect the patient is likely growing MRSA given the description of the drainage. Patient has no areas of fluid collection appreciated at this time. Patient's presentation is concerning for MRSA infection. He will be placed on doxycycline 100 mg twice daily for 7 days. He may need to transition to prophylactic dosing of 50 mg once daily. He was referred back to his PCP and will likely need dermatologic referral if the symptoms do not improve. Patient was given wound care instructions and will return to the emergency department for worsening of symptoms or any medical concerns. Medication Reconcilliation Current Medication List: was personally reviewed by me Blood Pressure Screening Patient's blood pressure: Elevated blood pressure Blood pressure disposition: Elevated BP felt to be situational Impression Primary Impression: Folliculitis Scribe Attestation The scribe's documentation has been prepared under my direction and personally reviewed by me in its entirety. I confirm that the note above accurately reflects all work, treatment, procedures, and medical decision making performed by me. Departure Information Dispostion Home / Self-Care Prescriptions Doxycycline (Monohydrate) (Doxycycline) 100 Mg Cap 1 TAB PO BID for 7 Days, #14 TAB Prov: Milka Fierro M.D. 01/06/18 Referrals Danis Mcbride D.O. (PCP) Forms HOME CARE DOCUMENTATION FORM, IMPORTANT VISIT INFORMATION, WORK / SCHOOL INSTRUCTIONS Patient Instructions My [facility] Additional Instructions Diagnosis: Folliculitis Doxycycline 100 mg twice daily for 7 days. Wash your face and head with salicylic acid based face wash 1-2 times daily. Apply antibiotic ointment to the affected areas. Avoid sun while on the doxycycline as it predisposes you to severe sunburns. Wear 30+ sunscreen at all times. Follow-up with your physician this week for reevaluation, you may require dermatology referral.
[2018-01-06 02:22] VITALS: BP 133/86; PULSE 95; O2SAT 98
--- NOTE | 2018-01-07 14:42 | Pharmacy Progress Note ---
ED Pharmacist Progress Note Date of Service: January 07, 2018. Received phone call from patient saying her son was unable to get RX from [facility] pharmacy in [place] - she was uncertain of what the problem was. I offered to call [facility] pharmacy to determine why. I spoke with the pharmacist there. The reason was that the patient's insurance would not cover doxy monohydrate, rather the hyclate salt was covered. I advised [facility] that the hyclate salt may be substituted in same dose and duration per prior discussions with ED providers who OK'd this substitution when encountered. I then notified mother, Yasmeen, that Rx problem has been resolved.
== END 2018-01-06 02:25 | disposition home or self-care (01) ==
LOC: C.EDB 01:49
DX: L73.9 Follicular disorder, unspecified (principal); F17.200 Nicotine dependence, unspecified, uncomplicated; Z91.041 Radiographic dye allergy status; Z88.6 Allergy status to analgesic agent; Z88.8 Allergy status to other drugs, medicaments and biological substances